=== PATIENT | female | born 1995 ===

== ENCOUNTER 2016-07-27 17:51 | Emergency (ER) | payer OTHER ==
[2016-07-27 18:15] VITALS: BP 118/77; PULSE 67; RESP 18; TEMP 98.3; O2SAT 100
== END 2016-07-27 18:28 | disposition home or self-care (01) ==
LOC: ED 17:51
DX: K08.89 Other specified disorders of teeth and supporting structures (principal)
CPT/HCPCS: 99282

== ENCOUNTER 2019-01-03 10:53 | Emergency (ER) | payer OTHER ==
[2019-01-03] MEDS: SODIUM CHLORIDE 0.9% 1000ML 1,000 ML IV ONE (11:40)
[2019-01-03] MEDS: METOCLOPRAMIDE HYDROCHLORIDE 5 MG/ML SOL IV ONE (12:17)
[2019-01-03] MEDS ORDERED: DIPHENHYDRAMINE 50 MG/ML SOL ONE (12:21)
[2019-01-03] MEDS ORDERED: METOCLOPRAMIDE HYDROCHLORIDE 5 MG/ML SOL ONE (12:21)
[2019-01-03] MEDS: DIPHENHYDRAMINE 50 MG/ML SOL IV ONE (12:26)
[2019-01-03 13:18] VITALS: TEMP 98.3
[2019-01-03 14:40] VITALS: BP 119/67; PULSE 70; RESP 18; O2SAT 98
== END 2019-01-03 13:36 | disposition home or self-care (01) ==
LOC: ED 10:53
DX: G43.909 Migraine, unspecified, not intractable, without status migrainosus (principal)
CPT/HCPCS: 96365; 96374; 96375; 99282; 99285; J1200; J2765